=== PATIENT | female | born 1935 | race Caucasian/White ===

== ENCOUNTER 2020-04-08 14:46 | Emergency (ER) | payer MEDICARE, OTHER ==
[2020-04-08] MEDS ORDERED: SODIUM CHLORIDE 0.9% (FLUSH) 10 ML SYG IV PRN (15:49)
--- NOTE | 2020-04-08 16:28 | RAD ---
EXAM DESCRIPTION: Chest,1 View CLINICAL HISTORY: 84 years Female right chest pain s/p fall COMPARISON: None TECHNIQUE: AP view of the chest was obtained. FINDINGS: Cardiac size is within normal limits. Central vessels are not increased. No infiltrates or effusions seen. No consolidation. No pneumothorax. IMPRESSION: No active disease. Electronically signed by: Nay Castillo MD 04/08/2020 4:26 PM CDT
--- NOTE | 2020-04-08 16:30 | CT ---
EXAM DESCRIPTION: Head CLINICAL HISTORY: 84 years Female confusion s/p fall COMPARISON: None TECHNIQUE: Images were obtained in axial, sagittal, and planes. This exam was performed according to our departmental dose-optimization program which includes use of Automated Exposure Control, adjustment of the mA and/or kV according to patient size and/or use of iterative reconstruction technique. FINDINGS: Ventricular system is enlarged. Moderate prominence of the cortical sulci. Moderate periventricular decreased attenuation consistent with more remote microvascular ischemic change. No abnormal areas of increased attenuation seen. No extra-axial fluid collections noted. No evidence for skull fracture. Symmetric aeration mastoid air cells bilaterally. Unremarkable paranasal sinuses. IMPRESSION: No acute intracranial abnormality. No evidence for hemorrhage, mass lesion, or large acute infarction. Age-appropriate changes. Electronically signed by: Nay Catsillo MD 04/08/2020 4:29 PM CDT
--- NOTE | 2020-04-08 18:23 | ED.PDOC ---
History of Present Illness - General Chief Complaint: Trauma Stated Complaint: fall x3 days Time Seen by Provider: 04/08/20 15:49 Source: patient, RN notes reviewed, Vital Signs reviewed, family - Daughter Exam Limitations: no limitations - History of Present Illness Initial Comments: Patient is an 84-year-old white female who presents with complaints of falling 3 times in the last few days. Patient denies any pain. She does have some bruising on her right side. Only full HPI and review of systems is difficult to obtain secondary to dementia. Patient denies any symptoms or pain at all. Timing/Duration: other - Over the last few days Severity: mild Improving Factors: nothing Worsening Factors: nothing Associated Symptoms: denies symptoms Allergies/Adverse Reactions: Allergies NO KNOWN ALLERGY Allergy (Verified 04/08/20 15:04) Home Medications: Ambulatory Orders Memantine HCl [Namenda] 10 mg PO DAILY 04/08/20 Review of Systems - Review of Systems Constitutional: States: no symptoms reported, see HPI EENTM: States: no symptoms reported. Denies: blurred vision, double vision Respiratory: States: no symptoms reported. Denies: cough, short of breath, wheezing Cardiology: States: no symptoms reported. Denies: chest pain, palpitations, syncope Gastrointestinal/Abdominal: States: no symptoms reported. Denies: abdominal pain, diarrhea, nausea, vomiting Musculoskeletal: States: see HPI, other - Right chest wall pain. Denies: back pain, neck pain Skin: States: no symptoms reported. Denies: change in color, rash Neurological: States: no symptoms reported. Denies: headache, numbness, tingling Endocrine: States: no symptoms reported Hematologic/Lymphatic: States: no symptoms reported All other Systems: No Change from Baseline Past Medical History (General) - Patient Medical History Hx Stroke: No Hx Dementia: Yes Hx Hypertension: No Hx Diabetes: No Hx Cancer: No Surgical History: no surgical history Family Medical History - Family History Mother Family History: No Known Physical Exam - Physical Exam General Appearance: Alert, Comfortable, Well Developed, Well Groomed, Well Hydrated, Well Nourished Eye Exam: bilateral normal Ears, Nose, Throat: hearing grossly normal, normal ENT inspection, normal pharynx Neck: non-tender, full range of motion, supple, normal inspection Respiratory: chest non-tender, lungs clear, normal breath sounds, no respiratory distress, no accessory muscle use Cardiovascular/Chest: normal peripheral pulses, regular rate, rhythm, no edema, no gallop, other - Tenderness palpation of the right chest wall. No crepitus or step-offs. No overt bruising. 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 04/08/20 18:28 Patient states that she wants to discharge home. X-ray and CT are unremarkable. Plan discharge home with family at this point time. I discussed plan of care with the patient and family and they voiced understanding and agreement. Anirudh Sosa M.D. #[id number] - Results/Orders Results/Orders: EXAM DESCRIPTION: Chest,1 View CLINICAL HISTORY: 84 years Female right chest pain s/p fall COMPARISON: None TECHNIQUE: AP view of the chest was obtained. FINDINGS: Cardiac size is within normal limits. Central vessels are not increased. No infiltrates or effusions seen. No consolidation. No pneumothorax. IMPRESSION: No active disease. Electronically signed by: Nay Castillo MD 04/08/2020 4:26 PM CDT EXAM DESCRIPTION: CT Head CLINICAL HISTORY: 84 years Female confusion s/p fall COMPARISON: None TECHNIQUE: Images were obtained in axial, sagittal, and planes. This exam was performed according to our departmental dose-optimization program which includes use of Automated Exposure Control, adjustment of the mA and/or kV according to patient size and/or use of iterative reconstruction technique. FINDINGS: Ventricular system is enlarged. Moderate prominence of the cortical sulci. Moderate periventricular decreased attenuation consistent with more remote microvascular ischemic change. No abnormal areas of increased attenuation seen. No extra-axial fluid collections noted. No evidence for skull fracture. Symmetric aeration mastoid air cells bilaterally. Unremarkable paranasal sinuses. IMPRESSION: No acute intracranial abnormality. No evidence for hemorrhage, mass lesion, or large acute infarction. Age-appropriate changes. Electronically signed by: Nay Castillo MD 04/08/2020 4:29 PM CDT EKG performed 08 April 2020 at 1502 hrs.: Sinus rhythm with first-degree AV block at 76 bpm, normal axis deviation, no ST or T wave changes, otherwise normal EKG. No comparison EKG available at this time. 04/08/20 15:49 Sodium Chloride 0.9% (Flush) [Saline Flush Syringe] 10 ml IV PRN PRN 04/08/20 15:50 URINALYSIS Stat 04/08/20 16:00 EKG STAT Laboratory Results - last 24 hr 04/08/20 04/08/20 04/08/20 15:50 15:50 15:50 WBC 7.1 RBC 3.49 L Hgb 10.6 L Hct 32.1 L MCV 92.1 MCH 30.5 MCHC 33.1 RDW 14.0 Plt Count 236 MPV 7.2 L Absolute Neuts (auto) 3.90 Absolute Lymphs (auto) 2.20 Absolute Monos (auto) 0.70 Absolute Eos (auto) 0.20 Absolute Basos (auto) 0.00 Neutrophils % 55.1 Lymphocytes % 31.2 Monocytes % 10.5 H Eosinophils % 2.7 Basophils % 0.5 PT 10.1 INR 1.02 PTT (SP) 22.2 Sodium 138 Potassium 3.9 Chloride 108 Carbon Dioxide 24 Anion Gap 9.9 L BUN 16 Creatinine 0.67 BUN/Creatinine Ratio 23.9 H POC Glucose Random Glucose 105 Serum Osmolality 277.2 Calcium 8.7 Total Bilirubin 0.4 AST 18 ALT 11 Alkaline Phosphatase 52 Creatine Kinase 54 CK-MB (CK-2) 2.2 CK-MB (CK-2) % Not Reportable Troponin I 0.03 Serum Total Protein 6.6 Albumin 3.4 Globulin 3.2 Albumin/Globulin Ratio 1.1 04/08/20 15:50 WBC RBC Hgb Hct MCV MCH MCHC RDW Plt Count MPV Absolute Neuts (auto) Absolute Lymphs (auto) Absolute Monos (auto) Absolute Eos (auto) Absolute Basos (auto) Neutrophils % Lymphocytes % Monocytes % Eosinophils % Basophils % PT INR PTT (SP) Sodium Potassium Chloride Carbon Dioxide Anion Gap BUN Creatinine BUN/Creatinine Ratio POC Glucose 118 H Random Glucose Serum Osmolality Calcium Total Bilirubin AST ALT Alkaline Phosphatase Creatine Kinase CK-MB (CK-2) CK-MB (CK-2) % Troponin I Serum Total Protein Albumin Globulin Albumin/Globulin Ratio Vital Signs 04/08/20 15:00 Temperature 99.3 F Pulse Rate [ 75 right brachial] Respiratory 20 Rate Blood Pressure 167/80 [right barchial ] O2 Sat by Pulse 96 Oximetry Departure - Departure Clinical Impression: Fall Qualifiers: Encounter type: initial encounter Qualified Code(s): W19.XXXA - Unspecified fall, initial encounter Chest wall contusion Qualifiers: Encounter type: initial encounter Laterality: right Qualified Code(s): S20.211A - Contusion of right front wall of thorax, initial encounter Time of Disposition: 18:39 Disposition: Discharge to Home or Self Care Condition: Good Departure Forms: ED Discharge - Pt. Copy, Patient Portal Self Enrollment Instructions: DI for Trauma, Getting Up From a Fall, Standing Balance Exercises, Beginner, Contusion (DC) Diet: resume usual diet Activity: increase activity as tolerated Referrals: RAHEL MENDOZA [Primary Care Provider] - 1-5 Days Home Medications: Ambulatory Orders Memantine HCl [Namenda] 10 mg PO DAILY 04/08/20
[2020-04-08 19:31] VITALS: BP 165/87; TEMP 98.6; O2SAT 99
== END 2020-04-08 19:32 | disposition home or self-care (01) ==
LOC: ER 14:46
DX: S20.211A Contusion of right front wall of thorax, initial encounter (principal); I44.0 Atrioventricular block, first degree; F03.90 Unspecified dementia, unspecified severity, without behavioral disturbance, psychotic disturbance, mood disturbance, and anxiety; W19.XXXA Unspecified fall, initial encounter; Y92.9 Unspecified place or not applicable